=== PATIENT | female | born 1965 | race Caucasian/White ===

== ENCOUNTER 2018-06-16 15:38 | Outpatient (CLI) | payer OTHER ==
--- NOTE | 2018-06-16 16:38 | MRI ---
MRI LUMBAR SPINE NONCONTRAST: 06/16/18 HISTORY: Low back pain. Bilateral hip radiculopathy, right greater than left. Radiographs are not available fo r direct correlation, therefore the lowest lumbar type vertebra will be designated as L5, with the r emainder numbered accordingly. Mild posterior disc bulges at the lower thoracic spine as visualized o n the sagittal images. The conus medullaris has a normal appearance. Desiccation of the lowest four i ntervertebral discs. Vertebral body heights are maintained. Scattered mild discogenic end plate es within the bone marrow. T12-L1, L1-2, L2-3: Mild osteophytosis. Central canal and neural foramina are patent. L3-4: Minimal disc bulge. Circumferential degenerative changes with prominent facet hypertrophy. Mode rate stenosis of the central canal. L4-5: Mild disc space narrowing. Minimal disc bulge. Posterior annular fissure within the disc. Promi nent posterior facet hypertrophy and ligamentous thickening. Severe stenosis of the central canal and moderate stenosis of each neural foramen. L5-S1: Minimal disc bulge. Facet joint hypertrophy. Minimal stenosis of the thecal sac. Moderate bila teral foraminal stenoses. IMPRESSION: Degenerative changes lower lumbar spine, including severe central canal stenosis at the L4-5 level. C linical correlation regarding other signs and symptoms of pseudoclaudication is required. POS: MAIN
== END 2018-06-16 15:39 | disposition home or self-care (01) ==
LOC: TBSIIMAG 15:38
PROVIDERS: ATTEND Neurological Surgery
DX: M54.5 Low back pain (principal); M47.816 Spondylosis without myelopathy or radiculopathy, lumbar region; M48.061 Spinal stenosis, lumbar region without neurogenic claudication
CPT/HCPCS: 72148